=== PATIENT | male | born 2000 | race Caucasian/White ===

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

== ENCOUNTER → 2022-04-01 | Outpatient (CLI) | payer OTHER ==
[2022-04-04 00:09] LABS: CHLAMYDIA TRACHOMATIS, NAA Negative (Negative)
== END | disposition home or self-care (01) ==
LOC: LAB SHORT 12:00
PROVIDERS: Nurse Practitioner Family
DX: N34.1 Nonspecific urethritis (principal)
CPT/HCPCS: 87491; 87591